=== PATIENT | male | born 1970 | race African-American/Black ===

== ENCOUNTER 2017-10-10 08:14 | Emergency (ER) | payer MEDICAID ==
[~2017-10-10] VITALS: Ht 172.7 cm; Wt 97.7 kg
[2017-10-10] MEDS ORDERED: KETOROLAC TROMETHAMINE 10 MG TABLET PO ONE (10:45)
[2017-10-10 10:59] VITALS: BP 132/81
== END 2017-10-10 11:13 | disposition home or self-care (01) ==
LOC: EMS 08:17
DX: S20.212A Contusion of left front wall of thorax, initial encounter (principal); M94.0 Chondrocostal junction syndrome [Tietze]; X58.XXXA Exposure to other specified factors, initial encounter; Y93.89 Activity, other specified; Y92.89 Other specified places as the place of occurrence of the external cause; Y99.8 Other external cause status
CPT/HCPCS: 71100; 93005; 99284